=== PATIENT | male | born 1950 | race Caucasian/White ===

== ENCOUNTER → 2016-04-27 | Outpatient (CLI) | payer OTHER ==
--- NOTE | 2016-04-27 17:14 | DX ---
Chest, Two Views at 1425 hours History: Cough. Comparison: None. Findings: Cardiac silhouette is within normal range. No pneumonia, congestive heart failure, pleural effusion, or pneumothorax. Moderate osteoarthritis bilateral acromioclavicular joints. Impression: No focal pneumonia.
== END ==
LOC: GIMAGING 14:28
PROVIDERS: ATTEND Family Medicine
DX: R05 Cough (principal)
CPT/HCPCS: 71020-PO